=== PATIENT | male | born 1995 | race Caucasian/White ===

== ENCOUNTER 2022-04-23 08:58 | Emergency (ER) | payer MEDICAID ==
[~2022-04-23] VITALS: Ht 180.3 cm; Wt 136.4 kg
--- NOTE | 2022-04-23 12:00 | NUR ---
assumed care of pt. from the lobby, pt. ambulated back from the lobby in stable condition. mild distress noted in the right hand
[2022-04-23] MEDS ORDERED: LIDOcaine 1% (10mg/ml)w/preservative inj. 20ml MDV SQ ONE (12:10)
[2022-04-23] MEDS ORDERED: LIDOcaine 1% 30ml preserv. free vial SQ ONE (12:25)
[2022-04-23] MEDS ORDERED: TETanus/Pertussis (Acell)/Diphther VAC/PF (Tdap-Adult) 0.5ml syringe IMVAC ONE (13:35)
--- NOTE | 2022-04-23 15:08 | NUR ---
road tested pt. per Dr. Nichols's request. Pt. walked fine approx. 50 ft and back to room. updated Dr. Nichols
[2022-04-23 15:43] VITALS: BP 170/101
== END 2022-04-23 15:43 | disposition home or self-care (01) ==
LOC: ER 08:58
DX: S62.324D Displaced fracture of shaft of fourth metacarpal bone, right hand, subsequent encounter for fracture with routine healing (principal); Z87.81 Personal history of (healed) traumatic fracture; X58.XXXD Exposure to other specified factors, subsequent encounter
CPT/HCPCS: 26600; 73120; 73130; 90471; 90715; 99284; A6449